=== PATIENT | female | born 1960 | race Caucasian/White ===

== ENCOUNTER 2017-03-06 09:51 | Day surgery (SDC) | payer BC ==
[2017-03-03 10:34] LABS: BASOPHILS % (AUTO) 0.4 % (0.0-2.0); EOSINOPHILS # (AUTO) 0.1 K/uL (0.0-0.4); EOSINOPHILS % (AUTO) 1.3 % (0.0-4.0); HEMOGLOBIN 12.5 g/dL (12.0-16.0); LYMPHOCYTES # (AUTO) 1.8 K/uL (1.0-5.5); MEAN CORPUSCULAR HEMOGLOBIN 29 pg (27-31); MEAN CORPUSCULAR HGB CONC 35 % (32-36); MEAN CORPUSCULAR VOLUME 84 fL (79.0-98.0); MONOCYTES # (AUTO) 0.6 K/uL (0.0-1.0); MONOCYTES % (AUTO) 8.9 % (1.7-9.3); NEUTROPHILS # (AUTO) 4.2 K/uL (1.8-7.7); NEUTROPHILS % (AUTO) 62.4 % (40.0-70.0); PLATELET COUNT (AUTO) 204 K/uL (130-430); RED BLOOD CELL COUNT(AUTO) 4.27 MIL/uL (4.2-6.2); RED CELL DISTRIBUTION WIDTH 12.6 % (9.0-15.0); WHITE BLOOD COUNT (AUTO) 6.7 K/uL (4.8-10.8)
[2017-03-03 10:43] LABS: CALCIUM 9.5 mg/dL (8.4-11.0); CREATININE 0.85 mg/dL (0.55-1.30); POTASSIUM 4.2 mmol/L (3.5-5.1)
[2017-03-03 10:58] LABS: BILIRUBIN,URINE NEGATIVE (NEGATIVE); BLOOD, URINE TRACE (NEGATIVE); CLARITY/URINE CLEAR (CLEAR); COLOR,URINE YELLOW (YELLOW); GLUCOSE,URINE NEGATIVE (NEGATIVE); KETONES,URINE NEGATIVE (NEGATIVE); LEUKOCYTE ESTERASE ,URINE NEGATIVE (NEGATIVE); NITRITE, URINE NEGATIVE (NEGATIVE); PH,URINE 5.5 (5.0-8.0); PROTEIN URINE NEGATIVE (NEGATIVE); UROBILINOGEN,URINE 0.2 (0.2-1.0)
[2017-03-03 11:04] LABS: BACTERIA,URINE MODERATE /HPF (None Seen); RBC,URINE 0-3 /HPF (0-3); WBC,URINE 0-3 /HPF (0-3)
[~2017-03-06] VITALS: Ht 170.2 cm; Wt 121.6 kg
[2017-03-06] MEDS ORDERED: MIVACURIUM CHLORIDE 20 MG/10 ML VIAL (MIVACRON) INJ ONE (09:52)
[2017-03-06] MEDS ORDERED: KETOROLAC TROMETHAMINE 30 MG VIAL IVP ONE (09:52)
[2017-03-06] MEDS ORDERED: NS IRRIG SOLN 5000 ML IR ONE (09:52)
[2017-03-06] MEDS ORDERED: SEVOFLURANE 15 MIN GAS INH ONE (09:52)
[2017-03-06] MEDS ORDERED: PROPOFOL 200MG/ 20ML VIAL (DIPRIVAN) IV ONE (09:52)
[2017-03-06] MEDS ORDERED: MIDAZOLAM HCL 5 MG/ML VIAL (VERSED) IV ONE (09:52)
[2017-03-06] MEDS ORDERED: LR 1,000 ML IV.SOLN IV ONE (09:52)
[2017-03-06] MEDS ORDERED: ONDANSETRON HCL 4 MG/2 ML VIAL IVP ONE (09:52)
[2017-03-06] MEDS ORDERED: fentaNYL CITRATE/PF 100 MCG/2 ML AMP IVP ONE (09:52)
[2017-03-06] MEDS ORDERED: LR 1,000 ML IV SCH (12:50)
[2017-03-06] MEDS ORDERED: MORPHINE 4 MG/ML INJ. SYRINGE IVP PRN ×3 (13:00)
[2017-03-06] MEDS ORDERED: METOCLOPRAMIDE HCL 10 MG/2 ML VIAL IVP PRN (13:00)
[2017-03-06] MEDS ORDERED: ONDANSETRON HCL 4 MG/2 ML VIAL IVP PRN (13:30)
[2017-03-06] MEDS ORDERED: OXYCODONE/ACETAMINOPHEN 5-325 TABLET PO PRN (13:30)
[2017-03-06] MEDS ORDERED: PROMETHAZINE HCL 25 MG/ML AMP IM PRN (13:30)
[2017-03-06] MEDS ORDERED: HYDROmorphone 2 MG TAB PO PRN (13:30)
[2017-03-06 14:10] VITALS: BP_SYST 119
== END 2017-03-06 15:00 | disposition home or self-care (01) ==
LOC: SDS 09:51 → SMU 09:52 → SDS 15:00
PROVIDERS: ATTEND Obstetrics & Gynecology
DX: N84.0 Polyp of corpus uteri (principal); D25.9 Leiomyoma of uterus, unspecified; Z79.899 Other long term (current) drug therapy; Z85.3 Personal history of malignant neoplasm of breast; E03.9 Hypothyroidism, unspecified; J45.909 Unspecified asthma, uncomplicated; Z88.0 Allergy status to penicillin; E66.01 Morbid (severe) obesity due to excess calories; Z98.890 Other specified postprocedural states; E78.1 Pure hyperglyceridemia; E78.5 Hyperlipidemia, unspecified; Z80.8 Family history of malignant neoplasm of other organs or systems; Z68.41 Body mass index [BMI] 40.0-44.9, adult; G62.9 Polyneuropathy, unspecified
CPT/HCPCS: 36415; 58558; 80048; 81000; 85025; 86886; 86900; 86901; 87086; 88305; C1819; J1885; J2250; J2405; J2704; J3010; J7120

== ENCOUNTER 2020-03-22 01:01 | Emergency (ER) | payer BC ==
[~2020-03-22] VITALS: Ht 170.2 cm; Wt 108.9 kg
[2020-03-22 02:00] VITALS: BP_SYST 137
--- NOTE | 2020-03-22 02:00 | NUR ---
Patient to ER bed 2 to gown for evaluation. Side rails up. Report given to AILYN.
--- NOTE | 2020-03-22 02:15 | NUR ---
PT AAO AND AMBULATORY C/O TRIP AND FALL TONIGHT ON HER SOCKS AND LANDED ON HER ABDOMEN. PT REPORTS THAT THE WIND GOT KNOOCKED OUT OF HER. PT REPORTS 10/10 PAIN SCALE AND MUSCLE TENDERNESS WITH MOVEMENT.
--- NOTE | 2020-03-22 02:45 | NUR ---
ER at bedside examining patient.
[2020-03-22] MEDS ORDERED: MORPHINE 2 MG/ML INJ. SYRINGE IM ONE (03:00)
--- NOTE | 2020-03-22 03:30 | NUR ---
Med therapy well tolerated and effective
[2020-03-22] MEDS ORDERED: MORPHINE 2 MG/ML INJ. SYRINGE ONE (04:17)
--- NOTE | 2020-03-22 04:30 | NUR ---
VSS no s/s of acute distress Resting on gurney rails up
--- NOTE | 2020-03-22 05:30 | NUR ---
Dr. Nunes bedside for pt update
[2020-03-22 05:40] VITALS: BP_SYST 132
--- NOTE | 2020-03-22 05:40 | NUR ---
Patient given written and verbal discharge instructions and verbalizes understanding. ER MD discussed with patient the results and treatment provided. Patient in stable condition. ID arm band removed. Rx of Ibuprofen and [place] given. Patient educated on pain management and to follow up with PMD. Pain Scale 0/10 Opportunity for questions provided and answered. Medication side effect fact sheet provided.
== END 2020-03-22 05:40 | disposition home or self-care (01) ==
LOC: SED 01:01
DX: R10.9 Unspecified abdominal pain (principal); Z88.0 Allergy status to penicillin; W01.0XXA Fall on same level from slipping, tripping and stumbling without subsequent striking against object, initial encounter; Y93.89 Activity, other specified; Y92.89 Other specified places as the place of occurrence of the external cause; Y99.8 Other external cause status
CPT/HCPCS: 71250; 74176; 99285; J2270